=== PATIENT | male | born 1950 | race Caucasian/White ===

== ENCOUNTER → 2019-03-04 | Outpatient (CLI) | payer OTHER | LOC: CV 10:16 | DX: I42.9 Cardiomyopathy, unspecified (principal) ==

== ENCOUNTER → 2019-03-08 | Outpatient (CLI) | payer OTHER | LOC: NUC 07:46 | DX: I25.10 Atherosclerotic heart disease of native coronary artery without angina pectoris (principal); E78.5 Hyperlipidemia, unspecified; I10 Essential (primary) hypertension; Z79.899 Other long term (current) drug therapy ==

== ENCOUNTER 2021-02-23 16:32 | Emergency (ER) | payer OTHER ==
[~2021-02-23] VITALS: Ht 172.7 cm; Wt 109.8 kg
[2021-02-23 16:45] VITALS: BP 164/90
== END 2021-02-23 17:53 | disposition home or self-care (01) ==
LOC: ER 16:32
DX: S61.012A Laceration without foreign body of left thumb without damage to nail, initial encounter (principal); I10 Essential (primary) hypertension; I25.10 Atherosclerotic heart disease of native coronary artery without angina pectoris; W26.0XXA Contact with knife, initial encounter; Y93.89 Activity, other specified; Y92.89 Other specified places as the place of occurrence of the external cause; Y99.9 Unspecified external cause status

== ENCOUNTER 2021-03-05 10:14 | Emergency (ER) | payer OTHER ==
[~2021-03-05] VITALS: Ht 172.7 cm; Wt 108.9 kg
[2021-03-05] MEDS ORDERED: LISINOPRIL10 MG PO (10:32)
[2021-03-05] MEDS ORDERED: SIMVASTATIN80 MG PO (10:33)
[2021-03-05] MEDS ORDERED: METOPROLOL SUCC50 MG PO (10:33)
[2021-03-05] MEDS ORDERED: ASA81BEC PO (10:36)
[2021-03-05] MEDS ORDERED: VOLTAREN50 MG PO (10:36)
[2021-03-05 11:39] VITALS: BP 137/87
== END 2021-03-05 11:39 | disposition home or self-care (01) ==
LOC: ER 10:14
DX: S61.012D Laceration without foreign body of left thumb without damage to nail, subsequent encounter (principal); I10 Essential (primary) hypertension; I25.10 Atherosclerotic heart disease of native coronary artery without angina pectoris; Z79.82 Long term (current) use of aspirin; Z79.899 Other long term (current) drug therapy; X58.XXXD Exposure to other specified factors, subsequent encounter

== ENCOUNTER → 2021-05-18 | Outpatient (CLI) | payer OTHER ==
[~2021-05-18] MED LIST: ASA81BEC PO; LISINOPRIL10 MG PO; METOPROLOL SUCC50 MG PO; SIMVASTATIN80 MG PO; VOLTAREN50 MG PO
== END ==
LOC: SJCVCIMAG 08:35
PROVIDERS: ATTEND Internal Medicine Cardiovascular Disease
DX: I35.1 Nonrheumatic aortic (valve) insufficiency (principal); R06.09 Other forms of dyspnea; I42.9 Cardiomyopathy, unspecified; I10 Essential (primary) hypertension; E78.00 Pure hypercholesterolemia, unspecified; R60.9 Edema, unspecified; E78.5 Hyperlipidemia, unspecified; M19.90 Unspecified osteoarthritis, unspecified site; Z79.82 Long term (current) use of aspirin; Z79.899 Other long term (current) drug therapy; Z72.89 Other problems related to lifestyle